=== PATIENT | female | born 1975 | race Caucasian/White ===

== ENCOUNTER 2018-08-04 15:37 | Emergency (ER) | payer OTHER ==
[~2018-08-04] VITALS: Ht 193 cm; Wt 117.9 kg
[2018-08-04] MEDS ORDERED: RELAFEN (16:03)
[2018-08-04] MEDS ORDERED: ADVIL100 MG (16:04)
[2018-08-04] MEDS ORDERED: NORFLEX (16:04)
== END 2018-08-04 19:45 | disposition home or self-care (01) ==
LOC: ER 15:37
DX: R07.89 Other chest pain (principal); M54.5 Low back pain